=== PATIENT | female | born 1960 | race Caucasian/White ===

== ENCOUNTER 2022-12-28 00:43 | Emergency (ER) | payer MEDICAID ==
[2022-12-28] MEDS ORDERED: LIDOCAINE PATCH 5% TOP STA (01:13)
[2022-12-28] MEDS ORDERED: CYCLOBENZAPRINE 10 MG TABLET PO STA (01:13)
--- NOTE | 2022-12-28 01:57 | ED Physician Documentation ---
PD HPI LOWER EXT INJURY - Stated complaint Stated Complaint: L LEG PX - Chief complaint Chief Complaint: Ext Problem - History obtained from History obtained from: Patient - Additional information Additional information: PatientPatient is a 62-year-old female presenting for evaluation of intermittent episodes of left thigh pain for the past month which have been worsening for the past 2 days. Patient describes it as feeling like a charley horse and a tight. She has a history of a CVA and is on Eliquis. She takes gabapentin for peripheral neuropathy. This is not been helping her with her symptoms. She denies any trauma or injury. She has been drinking more fluids to stay hydrated.She denies any swelling or discoloration to the site. Review of Systems Constitutional: denies: Fever Cardiac: denies: Chest pain / pressure Respiratory: denies: Dyspnea GI: denies: Abdominal Pain Musculoskeletal: reports: Extremity pain Neurologic: denies: Headache PD PAST MEDICAL HISTORY - Past Medical History Past Medical History: Yes Neuro: CVA - Past Surgical History Past Surgical History: Yes - Present Medications Home Medications: Ambulatory Orders Medication Instructions Recorded Confirmed Apixaban [Eliquis] 5 mg PO BID 12/28/22 12/28/22 Atorvastatin Calcium 40 mg PO DAILY 12/28/22 12/28/22 Cyclobenzaprine [Flexeril] 10 mg PO TID PRN #20 tablet 12/28/22 Gabapentin [Neurontin] 600 mg PO TID 12/28/22 12/28/22 LORazepam [Ativan] 0.5 mg PO DAILY PRN 12/28/22 12/28/22 - Allergies Allergies/Adverse Reactions: Allergies Allergy/AdvReac Type Severity Reaction Status Date / Time acetaminophen [From Percocet] Allergy Rash Verified 12/28/22 00:56 hydrocodone [From Vicodin] Allergy Rash Verified 12/28/22 00:56 oxycodone Allergy Rash Verified 12/28/22 00:55 - Social History Does the pt smoke?: No Smoking Status: Never smoker Does the pt drink ETOH?: No Does the pt have substance abuse?: No - Immunizations Immunizations are current?: Yes - POLST Patient has POLST: No PD ED PE NORMAL - General General: Alert and oriented X 3, No acute distress, Well developed/nourished - HEENT HEENT: Atraumatic - Neck Neck: Supple, no meningeal sign - Cardiac Cardiac: RRR, No murmur, Strong equal pulses - Respiratory Respiratory: No respiratory distress, Clear bilaterally - Abdomen Abdomen: Soft, Non tender, Non distended - Derm Derm: Warm and dry - Extremities Extremities: No deformity, Normal ROM s pain, No edema, No calf tenderness / cord, Other (Tenderness to lateral left thigh with no bruising, erythema or swelling, full range of motion at left hip and left knee, distal pulses intact) - Neuro Neuro: Alert and oriented X 3, No motor deficit, No sensory deficit, Normal speech Results - Vitals Vitals: Vital Signs - 24 hr 12/28/22 12/28/22 00:49 02:02 Temperature 36.3 C L Heart Rate 86 81 Respiratory 18 18 Rate Blood Pressure 161/89 H 158/68 H O2 Saturation 99 99 Oxygen O2 Source Room air PD Medical Decision Making - ED course Complexity details: re-evaluated patient, d/w patient ED course: Patient presenting for evaluation of left thigh pain. She is on Eliquis And her exam does not suggest a DVT. She has good perfusion and normal range of motion at the left hip and knee.We initially discussed doing an x-ray but after receiving medication patient reports feeling better and would prefer to hold off on imaging.She does have tenderness to the lateral aspect of the thigh with no deformity or signs of an infection. She reports it feels like a muscle tightness or charley horse. She was given a dose of Flexeril with improvement in her symptoms. She was counseled on need for close follow-up with her primary care provider as well as concerning symptoms to return for. Departure - Departure Disposition: 01 Home, Self Care Clinical Impression: Left leg pain Condition: Good Instructions: ED Strain Muscle Ext Prescriptions: Cyclobenzaprine [Flexeril] 10 mg PO TID PRN #20 tablet PRN Reason: Spasms Comments: I have sent a prescription for a muscle Relaxer to [facility] in [place]. This medicine can make you drowsy so do not drive or operate heavy machinery while taking the medicine. I would recommend making sure you are staying hydrated and close follow-up with your primary care provider. Please return to the ER with any worsening symptoms. Discharge Date/Time: 12/28/22 02:03
[2022-12-28 02:03] VITALS: BP 158/68
== END 2022-12-28 02:03 | disposition home or self-care (01) ==
LOC: ED 00:43
DX: M79.652 Pain in left thigh (principal); Z79.01 Long term (current) use of anticoagulants
CPT/HCPCS: 99283; A9270

== ENCOUNTER 2022-12-29 11:53 | Emergency (ER) | payer MEDICAID ==
[2022-12-29] MEDS ORDERED: KETOROLAC 60 MG/2 ML VIAL IM STA (12:36)
[2022-12-29] MEDS ORDERED: HYDROmorphone 1 MG/ML CARPUJECT IM STA (12:36)
--- NOTE | 2022-12-29 13:06 | ED Physician Documentation ---
History of Present Illness - Stated complaint Stated Complaint: LEG PX - Chief complaint Chief Complaint: Ext Problem - History obtained from History obtained from: Patient, EMS - Additonal information Additional information: The patient comes to the emergency department chief complaint of lower extremity pain. She was just seen here yesterday for the same thing. She states has been going on for about the last month and there was no triggering event that she could identify. The patient states that she was given a lidocaine patch yesterday and that she did case picker her Flexeril at the pharmacy yesterday but that just made her leg burn more. The patient has not seen her primary care physician about this. She lives in [facility] and comes here for the winter because it is too snowy at her home during the time year. She states she will be going back home next week. Patient denies any other complaints at this time. No swelling. She states that her leg hurts more when she flexes at the hip. 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 HEENT: None Psych: Anxiety Musculoskeletal: None Derm: None - Past Surgical History Past Surgical History: Yes Neuro: Craniotomy - Present Medications Home Medications: Ambulatory Orders Medication Instructions Recorded Confirmed Apixaban [Eliquis] 5 mg PO BID 12/28/22 12/29/22 Atorvastatin Calcium 40 mg PO DAILY 12/28/22 12/29/22 Cyclobenzaprine [Flexeril] 10 mg PO TID PRN #20 tablet 12/28/22 12/29/22 Gabapentin [Neurontin] 600 mg PO TID 12/28/22 12/29/22 LORazepam [Ativan] 0.5 mg PO DAILY PRN 12/28/22 12/29/22 traMADol [Ultram] 50 mg PO Q4-6H PRN #6 tablet 12/29/22 - Allergies Allergies/Adverse Reactions: Allergies Allergy/AdvReac Type Severity Reaction Status Date / Time acetaminophen [From Percocet] Allergy Rash Verified 12/29/22 11:53 hydrocodone [From Vicodin] Allergy Rash Verified 12/29/22 11:53 oxycodone Allergy Rash Verified 12/29/22 11:53 - Social History Does the pt smoke?: No Smoking Status: Never smoker Does the pt drink ETOH?: Yes ETOH Use: Liquor Does the pt have substance abuse?: Yes Substance Use and Type: Marijuana - Immunizations Immunizations are current?: Yes - POLST Patient has POLST: No PD ED PE NORMAL - Vitals Vital signs reviewed: Yes - General General: Alert and oriented X 3, No acute distress, Well developed/nourished - HEENT HEENT: Atraumatic, PERRL, EOMI, Moist mucous membranes - Neck Neck: Supple, no meningeal sign - Cardiac Cardiac: RRR, No murmur, Strong equal pulses - Respiratory Respiratory: No respiratory distress, Clear bilaterally - Abdomen Abdomen: Soft, Non tender, Non distended - Derm Derm: Normal color, Warm and dry, No rash - Extremities Extremities: No deformity, No edema, Other (Mildly limited range of motion at the left hip, secondary to pain. Tenderness over left inguinal area without mass.) - Neuro Neuro: Alert and oriented X 3 - Psych Psych: Normal mood, Normal affect Results - Vitals Vitals: Vital Signs - 24 hr 12/29/22 12/29/22 11:47 12:52 Temperature 36.8 C Heart Rate 73 57 L Respiratory 20 16 Rate Blood Pressure 116/74 104/64 O2 Saturation 96 96 Oxygen O2 Source Room air PD Medical Decision Making - ED course Complexity details: considered differential, d/w patient ED course: Patient initially arrived under a different name, which was Karon Upton. I could not find any records under this name, so I did speak with the patient and then she stated that actually she has 3 different names that she uses and that she probably use [facility]. I was able to find her records under this name. Vital signs the patient was not imaged because she seemed to have a soft tissue issue around the inguinal area but did not seem to have much indication of a DVT, nor did she have any indication of a bony issue. I felt that that was also the case today. I discussed with the patient that given her history of some nerve damage, She likely has some degree of neuropathy, which would go along with the burning pain that she feels going down her leg. I have treated her symptomatically here in the emergency department. The patient is given a small prescription for pain medicine to take at home but she has been advised that this will not be repeated in the emergency department and that she needs to see her primary care physician when she gets back to [place]. I have also discussed with her that she should not be using different names when she comes to the emergency department and should use only her legal name. We have discussed the usual indications for return. Departure - Departure Disposition: 01 Home, Self Care Clinical Impression: Pain of lower extremity Qualifiers: Laterality: left Qualified Code(s): M79.605 - Pain in left leg Condition: Stable Instructions: ED Neuropathy Peripheral Prescriptions: traMADol [Ultram] 50 mg PO Q4-6H PRN #6 tablet PRN Reason: Pain >8 Comments: You most likely have neuropathy causing your left leg pain. There is no easy fix for this in the emergency department, and you will need to talk to your primary doctor about what to do about this on a more long-term, chronic basis. You may continue to take your gabapentin and the Flexeril at home. A small prescription for pain medicine has been electronically transmitted to the [facility] in [place], but for any further pain control you are going to need to follow-up with your primary doctor. Please call today to make an appointment for as soon as you get back there next week.
[2022-12-29 13:35] VITALS: BP 110/72
== END 2022-12-29 13:34 | disposition home or self-care (01) ==
LOC: ED 11:53
DX: M79.605 Pain in left leg (principal)
CPT/HCPCS: 96372; 99283; J1170

== ENCOUNTER 2023-01-02 10:36 | Outpatient (CLI) | payer MEDICAID | END 2023-01-02 23:59 | disposition critical access hospital (66) | LOC: EMS 10:36 | DX: M79.652 Pain in left thigh (principal) | CPT/HCPCS: A0425; A0429 ==

== ENCOUNTER 2023-01-02 11:14 | Emergency (ER) | payer MEDICAID ==
--- NOTE | 2023-01-02 11:19 | ED Physician Documentation ---
PD HPI BACK PAIN - Stated complaint Stated Complaint: L LEG PX - History obtained from History obtained from: Patient, EMS - History of Present Illness Timing - onset: How many months ago (1) Timing - duration: Months (1) Timing - details: Gradual onset, Still present (worse the past week. Difficult walking due to pain and feeling of left leg weakness.) Location: Lower, Left Quality: Pain, Aching Associated symptoms: Weakness (feels left leg is weaker and has pain with walking. Denies numbness nor edema.). No: Fever, Numbness Improves with: Rest. No: Meds (Takes gabapentin for chronic back and arthritic pains. Recent addition of muscle relaxant and Tylenol have not helped. Seen in the ER twice in the past week for this with prescription of Flexeril than tramadol. Not improved.) Worsened by: Movement, Other (walking) Contributing factors: No: Trauma Similar symptoms before: No diagnosis Recently seen: Emergency Dept Review of Systems Constitutional: denies: Fever, Chills, Myalgias GI: denies: Abdominal Pain Musculoskeletal: reports: Back pain. denies: Extremity swelling Neurologic: reports: Focal weakness. 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 HEENT: None Psych: Anxiety Musculoskeletal: None Derm: None - Past Surgical History Past Surgical History: Yes Neuro: Craniotomy - Present Medications Home Medications: Ambulatory Orders Medication Instructions Recorded Confirmed Apixaban [Eliquis] 5 mg PO BID 12/28/22 12/29/22 Atorvastatin Calcium 40 mg PO DAILY 12/28/22 12/29/22 Cyclobenzaprine [Flexeril] 10 mg PO TID PRN #20 tablet 12/28/22 12/29/22 Gabapentin [Neurontin] 600 mg PO TID 12/28/22 12/29/22 LORazepam [Ativan] 0.5 mg PO DAILY PRN 12/28/22 12/29/22 traMADol [Ultram] 50 mg PO Q4-6H PRN #6 tablet 12/29/22 Acetaminophen [Acetaminophen Extra 500 mg PO QID PRN #50 tablet 01/02/23 Strength] HYDROmorphone [Dilaudid] 2 mg PO Q6H PRN #20 tablet 01/02/23 Lidocaine Patch 5% [Lidoderm Patch] 1 patch TOP DAILY PRN #10 patch 01/02/23 dexAMETHasone [Decadron] 4 mg PO DAILY #5 tablet 01/02/23 - Allergies Allergies/Adverse Reactions: Allergies Allergy/AdvReac Type Severity Reaction Status Date / Time acetaminophen [From Percocet] Allergy Rash Verified 01/02/23 11:27 hydrocodone [From Vicodin] Allergy Rash Verified 01/02/23 11:27 oxycodone Allergy Rash Verified 01/02/23 11:27 - Social History Does the pt smoke?: No Smoking Status: Never smoker Does the pt drink ETOH?: Yes Does the pt have substance abuse?: Yes - Immunizations Immunizations are current?: Yes - POLST Patient has POLST: No PD ED PE NORMAL - Vitals Vital signs reviewed: Yes - General General: Alert and oriented X 3, Well developed/nourished - Cardiac Cardiac: RRR, No murmur - Respiratory Respiratory: Clear bilaterally - Abdomen Abdomen: Soft, Non tender - Back Back: No CVA TTP, Other (tender lower lumbar more to the left muscles. No rash nor sores. ) - Derm Derm: Normal color, Warm and dry - Extremities Extremities: Other (The left gluteal and lateral hip are also tender to palpation in the muscular area. No skin sensitivity nor rash. Normal sensation in the lower portion of both extremities and she is able to plantar and dorsiflex and extend at the knee.) - Neuro Neuro: Alert and oriented X 3, No motor deficit, No sensory deficit, Normal speech Results - Vitals Vitals: Vital Signs - 24 hr 01/02/23 01/02/23 11:24 14:46 Temperature 36.4 C L Heart Rate 75 65 Respiratory 16 18 Rate Blood Pressure 107/86 H 125/67 O2 Saturation 95 96 Oxygen O2 Source Room air - Rads (name of study) lumbar CT Relevant Findings:: Prelim report reviewed, See rad report PD Medical Decision Making - ED course Complexity details: considered differential (Having low back pain and left hip pain with radicular symptoms. She states she has not had prior imaging. I got CT scan to evaluate and there was some disc protrusion particularly L5-S1. No serious central canal stenosis.), d/w patient ED course: She lives in [facility] and states she is hoping to get back there to follow-up with her primary care. She had intended to last week but had not because of the pain with traveling. She does do okay with hydromorphone and Toradol here on a prior visit and again today. I can prescribe her this in a limited fashion. I would also try steroid anti-inflammatory (she is on a DOAC so no NSAIDs) and lidocaine patches with. She states one did help when placed here in the ER but was not given a prescription. We did provide disc of her images for her to take home with her. Departure - Departure Disposition: , Self Care Clinical Impression: Low back pain Qualifiers: Chronicity: acute Back pain laterality: left Sciatica presence: with sciatica Sciatica laterality: sciatica of left side Qualified Code(s): M54.42 - Lumbago with sciatica, left side Condition: Stable Record reviewed to determine appropriate education?: Yes Instructions: ED Sciatica Prescriptions: Acetaminophen [Acetaminophen Extra Strength] 500 mg PO QID PRN #50 tablet PRN Reason: Pain dexAMETHasone [Decadron] 4 mg PO DAILY #5 tablet HYDROmorphone [Dilaudid] 2 mg PO Q6H PRN #20 tablet PRN Reason: Pain Lidocaine Patch 5% [Lidoderm Patch] 1 patch TOP DAILY PRN #10 patch PRN Reason: pain Comments: Your CT scan shows showed diffuse disc disease most notable at the L5-S1 level which could correlate with some nerve impingement in the pain distribution you are having. This could be called sciatic nerve pain. Continue with your usual gabapentin. We can add lidocaine patches since the one the other day here seem to help short-term. Continue with the muscle relaxants as previously prescribed as needed. I would suggest adding some anti-inflammatories and we can try dexamethasone steroid anti-inflammatory daily for 5 more days. To that add Tylenol or 4 times daily regularly for pain and to that add the hydrocodone every 6 hours just if needed for worse pain. We provided you a copy of your CT report as well as a disc of it so you can bring it to your primary care back home. I would suggest getting back home so you can initiate follow-up and further physical therapy and treatment sooner. I sent your prescriptions to [facility] pharmacy in [place]. I am prescribing a short course of narcotic pain medication for you. These are potentially dangerous and addictive medications that should be used carefully. These medications may constipate you. Take an [id number] stool softener such as docusate twice daily with plenty of water while taking these medications. If you go 24 hours without a bowel movement, take [id number] MiraLAX, per package instructions. Do not drink or drive while taking these medications. If you received narcotic or sedating medications while in the emergency department do not drive for 24 hours. Store this medication in a safe, secure place and out of reach of children. It is a violation of federal law to give or sell this medication to another person or to use in a manner other than prescribed. The ED will not refill narcotic prescriptions, including prescriptions lost or stolen. You can dispose of unwanted medications at the [facility]'s office or at several pharmacies such as [facility]. Discharge Date/Time: 01/02/23 15:15
[2023-01-02] MEDS ORDERED: HYDROmorphone 1 MG/ML CARPUJECT IM STA (12:07)
[2023-01-02] MEDS ORDERED: KETOROLAC 30 MG/ML VIAL IM STA (12:07)
[2023-01-02] MEDS ORDERED: LIDOCAINE PATCH 5% TOP STA (12:08)
[2023-01-02] MEDS ORDERED: DEXAMETHASONE 10 MG/ML VIAL PO STA (12:54)
[2023-01-02] MEDS ORDERED: CHERRY SYRUP 10 ML UDC PO ONE (12:54)
--- NOTE | 2023-01-02 14:05 | CT Report ---
PROCEDURE: LUMBAR SPINE WO INDICATIONS: low back pain, left radicular. new onset. TECHNIQUE: Noncontrast 3 mm thick sections acquired from the T12 level to the sacrum. Sagittal and coronal refo rmats were constructed. For radiation dose reduction, the following was used: automated exposure co ntrol, adjustment of mA and/or kV according to patient size. COMPARISON: None. FINDINGS: Image quality: Excellent. Bones: There is normal bony alignment. No acute vertebral body compression fractures. No suspiciou s lytic or blastic bony lesions. Precervical degenerative endplate sclerosis noted at T11-T12 and L5 -S1. Central spinal caliber is of normal overall caliber with the exception of severe stenosis at L5- S1. There is also moderate spinal canal stenosis at L4-5. No pars defects. T12-L1: No significant neuroforaminal stenosis or spinal canal stenosis. L1-L2: No significant neuroforaminal stenosis or spinal canal stenosis. L2-L3: Small symmetric disc bulge. Mild bilateral facet arthropathy. Mild spinal canal stenosis. M ild bilateral neuroforaminal stenosis. L3-L4: Symmetric disc bulge. Bilateral facet arthropathy. Epidural lipomatosis. Mild-moderate bilat eral neuroforaminal stenosis. Moderate spinal canal stenosis. L4-L5: Symmetric disc bulge. Moderate bilateral facet arthropathy. Ligamentum flavum hypertrophy. M oderate spinal canal stenosis and moderate bilateral neuroforaminal stenosis at this level. L5-S1: Significant disc space loss with vacuum disc phenomenon. Small locules of air noted within t he neural foramen on the left. Moderate bilateral facet arthropathy. Moderate degenerative endplate c hanges. Findings result in severe spinal stenosis as well as moderate severe bilateral neuroforaminal stenosis. Soft tissues: No retroperitoneal masses or hematomas. Visualized aorta is normal in caliber. Ather osclerotic calcifications of the abdominal aorta. Small punctate nonobstructing left renal stone. No hydronephrosis. No perinephric stranding. IMPRESSION: CT lumbar spine without acute fracture or malalignment. Advanced multilevel, multifactorial lumbar spondylosis as detailed above by vertebral body level. Fin dings are most pronounced from L4-5 through L5-S1 with the most severe level is noted at L5-S1. Nonobstructing small punctate left renal stone. Atherosclerosis. Reviewed by: Eugenio Buckley MD on 01/02/2023 2:03 PM PDT Approved by: Eugenio Buckley MD on 01/02/2023 2:03 PM PDT Station ID: [id number]
[2023-01-02 14:47] VITALS: BP 125/67
== END 2023-01-02 15:15 | disposition home or self-care (01) ==
LOC: EDUNIT# → ED 11:14
DX: M54.42 Lumbago with sciatica, left side (principal)
CPT/HCPCS: 72131; 96372; 99283; 99284; A9270; J1170